=== PATIENT | female | born 1970 | race Caucasian/White ===

== ENCOUNTER → 2020-03-01 13:52 | Outpatient (CLI) | payer OTHER, SELFPAY ==
[2020-03-01 14:35] LABS: COVID19 -Nasal RAPID Negative (Negative)
== END ==
PROVIDERS: Visit Provider Specialist
DX: Z01.812 Encounter for preprocedural laboratory examination (principal); Z20.822 Contact with and (suspected) exposure to COVID-19
CPT/HCPCS: 87635

== ENCOUNTER 2020-03-02 07:36 | Day surgery (SDC) | payer OTHER, SELFPAY ==
[2020-03-02] VITALS (8 sets, daily range): BP systolic 103–118; BP diastolic 50–78; PULSE 60–68; RESP 12–16; TEMP 36.3–37; O2SAT 99–100; BMI 22.5
--- NOTE | 2020-03-02 08:23 | SUR.PREOP ---
Notified patient of delay in her surgical procedure due to an emergency case from the ER. V/U. Called patient's to update regarding change in start time.
[2020-03-02] MEDS: LACTATED RINGERS 1,000 ML 100 ML IV (09:13)
--- NOTE | 2020-03-02 09:14 | PM.PREOP ---
Pre-operative Note COVID-19 COVID-19 status: Negative Result date/Date tested (Pos, Neg/Pending): 03/01/20 Interval Note History & Physical reviewed/Exam performed by Physician: Yes Changes to H&P: No
--- NOTE | 2020-03-02 09:46 | SUR.OPER ---
Lithotomy on padded OR bed, head on pillow, arms secured on padded arm boards at <90 degrees abduction. Legs secured in padded yellow fins stirrups.
--- NOTE | 2020-03-02 10:05 | PM.OP.1 ---
Operative Date/Time/Diagnoses Date of procedure: 03/02/20 Time of procedure: 10:05 Pre-op diagnosis: Menorrhagia Post-op diagnosis: same Procedure & Clinicians Procedure: Hysteroscopy with NovaSure ablation Same procedure as scheduled: Yes Indications: Menorrhagia Surgeon: Madhavi Roy Click Yes if Unassisted: Yes Anesthesia Type: General Operative Notes Findings: Normal exam under anesthesia. Sloughing endometrium on hysteroscopy. Post ablation hysteroscopy good ablation of endometrium. Closure Type: not applicable Specimen(s): none sent Estimated Blood Loss (mL): 1 Blood products transfused: none Procedure in detail: Patient was brought to the operating room where she was underwent general anesthesia was placed in the [facility] ([facility] Pulsatile stockings were in place and functional. Antibiotics were not indicated. Warming was with blankets. A check system was reviewed with the staff in the room. A single-tooth tenaculum was placed on the anterior lip of the cervix. The cervix was dilated to a # 7 Avelina dilator. The hysteroscope was placed through the cervix into the uterus with saline solution run. There was no obvious intrauterine pathology just some blood clots.. The NovaSure sound was used to determine the length of the uterus which was 6.5 cm. This was set on the NovaSure device. The device was placed in the uterus and the width determined to be 3.0 cm. The length and width were entered into the NovaSure machine. The plunger was pushed to the cervix to effect a good vacuum seal. This was documented by the machine. Cauterization was done with a total power of 107 and 50 seconds. The NovaSure array was pulled back into the device and then the device removed. Repeat hysteroscopy was performed. Patient tolerated the procedure well. Counts of instruments and sponges were correct. Patient went to recovery room in good condition. Complications: none Post-operative Condition: stable Disposition: same day surgery Plan for aftercare: Home when awake and stable
[2020-03-02] MEDS: ACETAMINOPHEN 325 MG TABLET 975 MG PO (10:26)
[2020-03-02] MEDS: ONDANSETRON 4 MG/2 ML INJ IV (10:48)
== END 2020-03-02 10:56 | disposition home or self-care (01) ==
PROVIDERS: Referring Provider Specialist; Visit Provider Specialist
PROC: 0U5B8ZZ Destruction of Endometrium, Via Natural or Artificial Opening Endoscopic (ICD-10-PCS; CPT 58563; principal; 2020-03-02 12:00)
DX: N92.0 Excessive and frequent menstruation with regular cycle (principal); I10 Essential (primary) hypertension
CPT/HCPCS: 58563; J1100; J1885; J2250; J2405; J2704; J3010